=== PATIENT | female | born 1955 | race Caucasian/White ===

== ENCOUNTER 2021-11-19 14:20 | Emergency (ER) | payer MEDICARE, OTHER, SELFPAY ==
--- NOTE | ~2021-11-19 | CT_ITS ---
EXAMINATION: CT HEAD/BRAIN WITHOUT CONTRAST CT CERVICAL SPINE WITHOUT CONTRAST CLINICAL INFORMATION: Trauma, fall. COMPARISON: None TECHNIQUE: 5 mm thin axial and reformatted 2 mm thin sagittal and coronal images of brain were obtained. Subsequently axial 3 mm thin and reformatted 2 mm thin sagittal and coronal images of cervical spine were obtained. DLP: 984.00 mGy-cm FINDINGS: BRAIN: There is no acute intra-axial or extra-axial bleed, masses or midline shift. There is no acute edema or infarction. The lateral ventricles are symmetrical in size and configuration without enlargement. The yang to white matter differentiation is maintained normal. Bone windows reveal no calvarial abnormality. Bilateral paranasal sinuses and mastoid air cells are well-aerated. CERVICAL SPINE: There is mild straightening of cervical lordosis. The vertebral heights and alignment are maintained. The craniovertebral junction and the C1-C2 alignment is normal. There is no visible acute fracture, dislocation or subluxation seen. The prevertebral and paravertebral soft tissues are normal. The airway is widely patent. The lung apices are clear. Incidental finding of a soft tissue mass in the roof of the nasopharynx measuring 1.8 x 1.4 x 1.5 cm on coronal image 05/27. CT/CT head/brain wo IV con IMPRESSION: No acute intracranial process seen. No acute fracture, dislocation or subluxation of the cervical spine. Soft tissue lesion in the roof of the nasopharynx likely a lobulated exophytic polyp/mass. Correlate with direct visualization with pharyngoscopy.
--- NOTE | ~2021-11-19 | CT_ITS ---
EXAMINATION: CT HEAD/BRAIN WITHOUT CONTRAST CT CERVICAL SPINE WITHOUT CONTRAST CLINICAL INFORMATION: Trauma, fall. COMPARISON: None TECHNIQUE: 5 mm thin axial and reformatted 2 mm thin sagittal and coronal images of brain were obtained. Subsequently axial 3 mm thin and reformatted 2 mm thin sagittal and coronal images of cervical spine were obtained. DLP: 984.00 mGy-cm FINDINGS: BRAIN: There is no acute intra-axial or extra-axial bleed, masses or midline shift. There is no acute edema or infarction. The lateral ventricles are symmetrical in size and configuration without enlargement. The yang to white matter differentiation is maintained normal. Bone windows reveal no calvarial abnormality. Bilateral paranasal sinuses and mastoid air cells are well-aerated. CERVICAL SPINE: There is mild straightening of cervical lordosis. The vertebral heights and alignment are maintained. The craniovertebral junction and the C1-C2 alignment is normal. There is no visible acute fracture, dislocation or subluxation seen. The prevertebral and paravertebral soft tissues are normal. The airway is widely patent. The lung apices are clear. Incidental finding of a soft tissue mass in the roof of the nasopharynx measuring 1.8 x 1.4 x 1.5 cm on coronal image 05/27. CT/CT cervical spine wo IV con IMPRESSION: No acute intracranial process seen. No acute fracture, dislocation or subluxation of the cervical spine. Soft tissue lesion in the roof of the nasopharynx likely a lobulated exophytic polyp/mass. Correlate with direct visualization with pharyngoscopy.
--- NOTE | ~2021-11-19 | XR_ITS ---
EXAMINATION: XR HUMERUS, LEFT CLINICAL INFORMATION: Trauma COMPARISON: None TECHNIQUE: AP and lateral views of the left humerus. FINDINGS: The bones and soft tissues are normal. No fracture. Imaged portions of the shoulder and elbow are unremarkable. XR/XR humerus LT IMPRESSION: Normal left humerus.
[2021-11-19 14:22] VITALS: BP 153/87; PULSE 67; RESP 17; TEMP 36.7; O2SAT 98; BMI 25.7
--- NOTE | 2021-11-19 14:39 | ECG_ITS ---
Test Reason : fall Blood Pressure : / mmHG Vent. Rate : 064 BPM Atrial Rate : 064 BPM P-R Int : 190 ms QRS Dur : 094 ms QT Int : 384 ms P-R-T Axes : 052 -05 004 degrees QTc Int : 396 ms Normal sinus rhythm Cannot rule out Anterior infarct , age undetermined Abnormal ECG No previous ECGs available Referred By: Jakob Londono Electronically Signed By:KATIE CASTRO
--- NOTE | 2021-11-19 14:40 | ED_ITS ---
HPI - Fall General Chief Complaint: Fall Stated Complaint: DIZZINESS W/ FALL FROM CHAIR,+CCOLLAR,-THINNERS Time Seen by Provider: 11/19/21 14:34 Source: patient and EMS Mode of arrival: EMS Limitations: no limitations History of Present Illness HPI Narrative: THIS IS A 66 YEARS OLD FEMALE WHO FELL FROM THE CHAIR WHILE SHE WAS GETTING UP, SHE IS COMPLAINING OF LEFT ARM PAIN, NO LOC, NO VOMITING NO SYNCOPE,SHE DENIES DIZZINESS AT THIS TIME MD complaint: fall Onset (ago): hour(s) (2) Fall from: chair Fall witnessed: yes, by family Place fall occurred: home Loss of consciousness: none Prolonged down time: no Symptoms prior to fall: none Context: tripped/slipped Related Data Allergies Allergy/AdvReac Type Severity Reaction Status Date / Time clindamycin [CLINDAMYCIN] Allergy Mild RASH Unverified 10/01/20 13:49 Penicillins [PENICILLINS] Allergy Mild RASH Unverified 10/01/20 13:49 Review of Systems Review of Systems: Yes all other systems are reviewed and are negative ENT: Reports system reviewed and no additional complaints, except as documented Cardiovascular: Cardiovascular: Reports no additional cardiovascular complaints Gastrointestinal: Gastrointestinal: Reports no additional gastrointestinal complaints [facility] Past Medical History [facility] Narrative: BIPOLAR DISORDER Physical Exam Vital Signs: Vital Signs: Last Vital Signs Temp 98.0 F 11/19/21 14:22 Pulse 67 11/19/21 14:22 Resp 17 11/19/21 14:22 BP 153/87 H 11/19/21 14:22 Pulse Ox 98 11/19/21 14:22 O2 Del Method 11/19/21 14:22 BMI result Body Mass Index 25.7 Const: General: cooperative Nutritional Appearance: average body habitus Orientation/consciousness: patient oriented x3 HEENT: Head: Yes normal to inspection General nose exam: Normal external nose present Face and sinus: Yes normal facial exam Mouth: Normal oral and palatal mucosa present Throat: Yes posterior oropharynx normal Neck: Neck: Yes normal visual inspection and Yes full ROM Chest: Chest palpation & inspection: normal inspection of the chest Resp: Effort & Inspection: normal respiratory effort Cardio: Jugular venous distension: no JVD Rate: regular rate Rhythm: regular rhythm GI: Inspection: Yes normal to inspection Palpation (GI): Soft to palpation, not firm and nontender Skin: General skin exam: no rashes or lesions noted Lesions: no lesions Neuro: General: patient oriented x3 Cranial nerves: Yes CN's II-XII intact bilaterally Cognition (Neuro): normal cognition Course Reevaluation(s) Reevaluation #1: WAITING FOR LABS NOT DONE YET SHE WANTS TO EAT , SHE HAS NO DIZZINESS Reevaluation #2: LAB PENDING AND CT PENDING WILL SIGN OUT TO dR [facility] MDM - Fall Lab Data Result diagrams: 11/19/21 15:53 11/19/21 15:53 Imaging Data LEFT HUMERUS: Radiologist's impression: cc: Jakob Londono MD~ EXAMINATION: XR HUMERUS, LEFT CLINICAL INFORMATION: Trauma? COMPARISON: None? TECHNIQUE: AP and lateral views of the left humerus. FINDINGS: The bones and soft tissues are normal. No fracture. Imaged portions of the shoulder and elbow are unremarkable.? XR/XR humerus LT IMPRESSION: Normal left humerus. Dictated By: Hasmukh Nguyen MD Signed By: <Electronically signed by Hasmukh Nguyen MD in OV> 11/19/21 1545 ECG Data Pacemaker model: nsr [address]-T CHANGES Discharge Plan Discharge Clinical Impression: Fall in elderly patient, Contusion of arm, left Patient Disposition: Still a Patient
[2021-11-19 15:56] LABS: MANUAL DIFF FLAG NO
[2021-11-19 16:04] LABS: PLT CLUMP 1; SCAN SMEAR FLAG 1
[2021-11-19 16:06] LABS: Basophils Percent Auto 0.4 % (0-2); Eosinophils Absolute Auto 0.5 X10*3/uL (0.0-0.4); Eosinophils Percent Auto 5.9 % (0-4); Hematocrit 40.3 % (37.0-47.0); Hemoglobin 12.8 g/dl (12.0-16.0); Imm Gran Abs Auto 0.01 X10*3/uL (0.00-0.03); Imm Gran Pct Auto 0.1 % (0.0-0.4); Lymphocytes Absolute Auto 3.4 X10*3/uL (1.2-4.9); Lymphocytes Percent Auto 42.5 % (20-40); Mean Corpuscular HGB Conc 31.8 g/dl (31.0-35.0); Mean Corpuscular Hemoglobin 29.4 pg (27.0-33.0); Mean Corpuscular Volume 92.4 fL (80.0-98.0); Mean Platelet Volume 10.5 fL (9.4-12.3); Monocytes Absolute Auto 0.5 X10*3/uL (0.1-1.2); Monocytes Percent Auto 6.2 % (2-11); Neutrophils Absolute Auto 3.6 x10*3/uL (2.0-8.3); Neutrophils Percent Auto 44.9 % (45-73); Red Blood Count 4.36 X10*6/uL (4.20-5.50); Red Cell Distribution Width 12.6 % (11.0-16.0)
[2021-11-19 16:08] LABS: Platelet Count 126 X10*3/uL (160-400); White Blood Count 8.1 X10*3/uL (4.8-10.8)
[2021-11-19 16:18] LABS: Alanine Aminotransferase 12 U/L (0-31); Albumin Level 3.8 g/dL (3.5-5.0); Alkaline Phosphatase 71 U/L (39-117); Anion Gap 16 (12-20); Aspartate Amino Transferase 18 U/L (5-31); Bilirubin Total 0.3 mg/dL (0.0-1.0); Blood Urea Nitrogen 28 mg/dL (9-16); Calcium 8.8 mg/dL (8.4-10.2); Carbon Dioxide 24 mmol/L (22-29); Chloride 108 mmol/L (96-108); Creatinine Clr Calc Pharmacy 33.2; Estimated Glomerular Filt Rate 32; Glucose Random 89 mg/dL (60-115); Potassium 4.8 mmol/L (3.3-5.1); Sodium 143 mmol/L (135-145); Total Protein 7.1 g/dL (6.5-8.0); Troponin-I High Sensitivity < 3.5 ng/L (<3.5-17.0)
[2021-11-19 17:42] LABS: Valproate 82.2 mcg/mL (50.0-100.0)
== END 2021-11-19 18:55 | disposition home or self-care (01) ==
PROVIDERS: Emergency Medicine; Emergency Provider Emergency Medicine; PCP Internal Medicine
DX: S40.022A Contusion of left upper arm, initial encounter (principal); R42 Dizziness and giddiness; M54.2 Cervicalgia; R51.9 Headache, unspecified; M79.602 Pain in left arm; W18.30XA Fall on same level, unspecified, initial encounter; Y93.9 Activity, unspecified; Y92.9 Unspecified place or not applicable; Y99.9 Unspecified external cause status
CPT/HCPCS: 36415; 70450; 72125; 73060; 80053; 80164; 84484; 85025; 93005; 99283; 99284

== ENCOUNTER 2024-10-10 13:10 | Outpatient (AMB) | payer MEDICARE, SELFPAY ==
--- NOTE | 2024-10-10 13:11 | A.OFFPC_ITS ---
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 Intake Note: New patient visit Crankshaft Grinder Required: No Allergies clindamycin (CLINDAMYCIN) Allergy (Mild, Unverified 10/01/20 13:49) RASH Penicillins (PENICILLINS) Allergy (Mild, Unverified 10/01/20 13:49) RASH Tobacco use date assessed: 10/10/24 Fall risk assessment: No Falls in past year Dental Screening Dental Screen Date: 10/10/24 Did you have a dental visit in the last 12 months?: Yes Did you have a dental problem in the last 6 months where you did not have access to dental care?: No Was dental information given to patient?: Patient has dentist HPI HPI Comments History of Present Illness Details 69 year old female with a past medical h istory of hypothyroid, insomnia, bipolar disorder presenting to [facility]. Transferring from [facility]. BH: on divalproex 500mg. She is following with psychiatry. Significant other has been trying to help patient streamline medication list. She was previously on olanzapine, lamictal. Hypothyroid: on levothyroxine 88mcg daily. She has been fatigued for the past 2 months. She reports recent infection of the right breast. Follows with Dr Godinez. She was on a topical antibiotic but still has some redness and warmth of the right breast She reports that colon cancer screening and mammogram is up to date She reports a history of osteopenia and says she is due for bone density ROS see HPI PHYSICAL EXAM: GENERAL: Alert and oriented x 3. NAD EYES: EOMI. Anicteric. HENT: Moist mucous membranes. No scleral icterus. No cervical lymphadenopathy. LUNGS: Clear to auscultation bilaterally. CARDIOVASCULAR: Regular rate and rhythm. No murmur. No JVD. ABDOMEN: Soft, non-tender +bs EXTREMITIES: No edema. Non-tender. SKIN mild redness and warmth of the lateral right breast NEUROLOGIC: No focal neurological deficits. CN II-XII grossly intact PSYCHIATRIC: Cooperative. Appropriate mood and affect [facility] Surgical History H/O right wrist surgery H/O laparoscopy Family History Father Diabetes Mother HTN (hypertension) Other FH: mental illness Social History Housing: House Alcohol intake: former Patient Tobacco Use Status: Never used Tobacco e-Cigarette/Vaping Use: Never Used Second Hand Smoke Exposure: No service: No Current occupational status: retired and disabled Cognitive needs: Yes (depakote effects focus) Hearing needs: No Vision needs: No Questionnaire PHQ-9 Over the last 2 weeks, how often have you been bothered by any of the following problems? 1. Little interest or pleasure in doing things: not at all 2. Feeling down, depressed, or hopeless: not at all 3. Trouble falling or staying asleep, or sleeping too much: more than half the days 4. Feeling tired or having little energy: more than half the days 5. Poor appetite or overeating: not at all 6. Feeling bad about yourself - or that you are a failure or have let yourself or your family down: not at all 7. Trouble concentrating on things, such as reading the newspaper or watching television: not at all 8. Moving or speaking so slowly that other people could have noticed. Or the opposite - being so fidgety or restless that you have been moving around a lot more than usual: not at all 9. Thoughts that you would be better off or of hurting yourself in some way: not at all Total score: 4 Depression Screening Interpretation: Negative Depression Screening Done: Yes 03910 - PHQ-9 Billing: Yes Source: Developed by Drs. Elder Hall, Gladis Brothers, Vincent Knutson and colleagues, with an educational chano from [employer]. Thrive Questionnaire Date Thrive assessed: 10/10/24 I am a: Patient What is your living situation today?: I have a steady place to live THRIVE Score: 0 AUDIT C Alcohol Use Questionnaire (AUDIT-C) 1. How often do you have a drink containing alcohol?: Never 3. How often do you have six or more drinks on one occasion?: Never Total Score: 0 Physical exam (Primary Care) Vital Signs: Last Vital Signs Temp 98.2 F 10/10/24 13:18 Pulse 85 10/10/24 13:18 Resp 12 10/10/24 13:18 BP 136/80 10/10/24 13:18 Pulse Ox 98 10/10/24 13:18 Oxygen Delivery Method Room Air 10/10/24 13:18 BMI result Body Mass Index 24.7 Tobacco/Smoking Status: Tobacco use Status Tobacco use date assessed 10/10/24 10/10/24 13:23 Patient Tobacco Use Status Never used Tobacco 10/10/24 13:23 e-Cigarette/Vaping Use Never Used 10/10/24 13:23 PHQ-9: PHQ-9 Score PHQ-9: Total score 4 10/10/24 13:24 Depression Screening Interpretation: Negative Thrive Assessment: Date of Thrive Assessment Date Thrive assessed 10/10/24 10/10/24 13:14 Coding Level of Care Code New Pt Level 4 (07836) Complex EM visit Add On G2211 Diagnoses Osteopenia, unspecified location M85.80 Osteopenia location: unspecified Fatigue, unspecified type R53.83 Fatigue type: unspecified Cellulitis of breast N61.0 Hypothyroidism, unspecified type E03.9 Hypothyroidism type: unspecified Additional Codes PHQ-9 - 53175 - PHQ-9 Billing: Yes ([id number]) Assessment & Plan Assessment & Plan (1) Osteopenia: Code(s): M85.80 - Other specified disorders of bone density and structure, unspecified site Category: Medical Qualifiers: Osteopenia location: unspecified Qualified Code(s): M85.80 - Other specified disorders of bone density and structure, unspecified site (2) Fatigue: Code(s): R53.83 - Other fatigue Category: Medical Qualifiers: Fatigue type: unspecified Qualified Code(s): R53.83 - Other fatigue (3) Cellulitis of breast: Code(s): N61.0 - Mastitis without abscess Category: Medical (4) Hypothyroid: Code(s): E03.9 - Hypothyroidism, unspecified Category: Medical Qualifiers: Hypothyroidism type: unspecified Qualified Code(s): E03.9 - Hypothyroidism, unspecified Plan 69 year old to establish care past medical, surgical, social reviewed Right breast cellulitis-keflex ordered Fatigue-labs ordered Osteopenia-dxa ordered Follow up Orders: Orders Lipid Panel Today E28.39 - Other primary ovarian failure, R53.83 - Other fatigue, Z13.220 - Encounter for screening for lipoid disorders, Z13.228 - Encounter for screening for other metabolic disorders Vitamin B12 and Folate Today E28.39 - Other primary ovarian failure, R53.83 - Other fatigue, Z13.220 - Encounter for screening for lipoid disorders, Z13.228 - Encounter for screening for other metabolic disorders TSH reflex Free T4 Today E28.39 - Other primary ovarian failure, R53.83 - Other fatigue, Z13.220 - Encounter for screening for lipoid disorders, Z13.228 - Encounter for screening for other metabolic disorders XR DEXA axial skeleton Today E28.39 - Other primary ovarian failure, M85.80 - Other specified disorders of bone density and structure, unspecified site Comprehensive Met. Panel Today E28.39 - Other primary ovarian failure, R53.83 - Other fatigue, Z13.220 - Encounter for screening for lipoid disorders, Z13.228 - Encounter for screening for other metabolic disorders UA CC w/rflx Micro + Cult Today E28.39 - Other primary ovarian failure, R53.83 - Other fatigue, Z13.220 - Encounter for screening for lipoid disorders, Z13.228 - Encounter for screening for other metabolic disorders Complete Blood Count Auto Diff Today E28.39 - Other primary ovarian failure, R53.83 - Other fatigue, Z13.220 - Encounter for screening for lipoid disorders, Z13.228 - Encounter for screening for other metabolic disorders IRON PROFILE Today E28.39 - Other primary ovarian failure, R53.83 - Other fatigue, Z13.220 - Encounter for screening for lipoid disorders, Z13.228 - Encounter for screening for other metabolic disorders Medications: New cephalexin ok with h/o pcn allergy 500 mg PO Q12H 10 caps 0RF
[2024-10-10 13:18] VITALS: BP 136/80; PULSE 85; RESP 12; TEMP 36.8; O2SAT 98; BMI 24.7
--- OUTSIDE RECORDS SUMMARY | 2024-10-10 13:54 | XMS_ITS | Encounter Summary ---
Author Organization [employer] Address [address] [place] [address] Care Team Providers Care Bisque Kiln Placer Name Role Phone Unavailable Primary Care Provider Unavailabl e Encounter Details Date Type Department Care Team (Late st Contact Info) Description 10/13/2022 Telephone [facility] [address] [place], [place] [phone] Mickey Vela BDS [address] [place], [place] [phone] Social History Tobacco Use Types Packs/Day Years Used Date Smoking Tobacco: Never Assessed Comments Unknown Sex and Gender Information Value Date Recorded Sex Assigned at Female 01/13/2022 10:37 AM EDT Legal Sex Female 10:37 AM EDT Gender Identity Female 01/13/2022 10:37 AM EDT Sexual Orientation Straight 01/13/2022 10 :37 AM EDT documented as of this encounter Miscellaneous Notes * Telephone Encounter - Jillian Lebron - 10/13/2022 9:20 AM EDT Mandi Cuevas 1955 Patient is requesting chlorhidine mouthwash to be sent to pharmacy please advise. documented in this encounter Plan of Treatment Not on file documented as of this encounter Visit Diagnoses Not on filedocumented in this encounter
--- OUTSIDE RECORDS SUMMARY | 2024-10-10 13:54 | XMS_ITS | Clinical Summary ---
Author Organization [facility], Address [address] [place] [address] [place] [address] Phone Care Team Providers Care Speeder Worker Name Role Phone Natalia Vidal MD Primary Care Provi janet Unavailable Allergies Active Allergy Reactions Criticality Noted Date Comments Clindamycin Rash Low 07/04/2019 Penicillins Rash Low 07/04/2019 Medications Multiple Vitamins-Minera ls (MULTIVITAMIN ADULT PO) Take 1 capsule by mouth 1 (one) time each day Active cetirizine (ZyrTEC) 10 MG tablet Take 10 mg by mouth 1 (one) time each day if needed Active divalproex (DEPAKOTE) 500 MG EC tablet Take 500 mg by mouth 2 (two) times a day Prescribed by Dr. Carine Schreiber (Psych) Active fluticasone (FLONASE) 50 MCG/ACT nasal spray Administer 1 spray into each nostril 2 (two) times a day Active lamoTRIgine (LaMICtal) 25 MG tablet Take 1 tablet (25 mg total) by mouth in the morning and 1 tablet (25 mg total) in the evening. 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/2021 Chronic kidney disease, stage 4 (severe) 022 Hypothyroidism Encounters Date Type Department Care Team Description 08/09/2024 1:30 PM EDT Office Visit [facility] [address] [address] Candelario Saleh MD Chronic kidney disease, stage 4 (severe) (HCC) (Primary Dx) from Last 3 Months Immunizations Immunization Administration Dates Next Due H1N1 Inj Preservative Free 01/29/2009 Influenza TIV (IM) 12/30/2010,01/25/2010, 009,01/10/2005 Moderna SARS-COV-2 03/02/2021,08/14/2020, 021 SARS-CoV-2, Unspecified 12/12/2021 Td 02/21/2004 Tdap 11/18/2016,03/23/2015,10/15/2012 Family History Medical History Relation Comments Diabetes type II Father Stroke Father Hypertension Mother Relation Status Comments Father Unknown Mother Unknown Social History Tobacco Use Types Packs/Day Years Used Date Smoking Tobacco: Never Alcohol Use Standard Drinks/Week Comments Yes 0 (1 standard drink = 0.6 oz pure alcohol) Alcoholic Drinks/day: Occasional social drink Comments Unknown Sex and Gender Information Value Date Recorded Sex Assigned at Not on file Legal Sex Female 4:30 PM EST Gender Identity Not on file Sexual Orientation Not on file Last Filed Vital Signs Vital Sign Reading Time Taken Comments Blood Pressure 110/70 11/02/2018 12:00 PM EDT Pulse 100 05/04/2018 12:00 PM EST Temperature - - Respiratory Rate - - Oxygen Saturation - - Inhaled Oxygen Concentration - - Weight 61.7 kg (136 lb) 07/05/2019 2:36 PM EDT Height 165.1 cm (5' 5 ) 11/02/2018 12:00 PM EDT Body Mass Index 22.63 11/02/2018 12:00 PM EDT Plan of Treatment Upcoming Encounters Date Type Department Care Team (Late st Contact Info) Description 11/24/2024 11:20 AM EDT Office Visit [facility] [place], [address] [place] [phone] Candelario Saleh MD [address] [place] [place] [phone] Health Maintenance Due Date Last Done Comments Breast Cancer Screening 1955 Pneumococcal Vaccine: 50+ Years (1 of 2 - PCV) 02/28/1976 Colorectal Cancer Screening: Annual FOBT 2006 Colorectal Cancer Screening: Colonoscopy 2006 Colorectal Cancer Screening: Sigmoidoscopy 2006 Influenza Vaccine (#1) 2024 1, 01/25/2010, 02/22/2009, Additional history exists Hepatitis B Vaccine Aged Out No longe r eligible based on patient's age to complete this [place] [id number] [facility] Medicare [place] [id number] Care Teams Speeder Worker Relationship Specialty Start Date End Date Subramonia-Natalia Arndt MD PCP - General Internal Medicine 04/15/21
--- OUTSIDE RECORDS SUMMARY | 2024-10-10 13:54 | XMS_ITS | Encounter Summary ---
Author Organization [facility] Address [address] [place] [address] Care Team Providers Care Manager Child Name Role Phone John Winkler MD Primary Care Provider [phone] Encounter Details Date Type Department Care Team Description 12/13/2009 Compensation And Benefits Manager Report Medical Records [address] [place] [address] Jorge Gonzalez MD Social History Tobacco Use Types Packs/Day Years Used Date Smoking Tobacco: Never Alcohol Use Standard Drinks/Week Comments No 0 (1 standard drink = 0.6 oz pur e alcohol) Sex Assigned at Date Recorded Not on file documented as of this encounter Plan of Treatment Not on file documented as of this encounter Visit Diagnoses Not on filedocumented in this encounter Care Teams Manager Child Relationship Specialty Start Date End Date John Winkler MD [address] [place] [address] PCP - General 05/28/1994 documented as of this encounter
== END 2024-10-10 13:43 | disposition home or self-care (01) ==
LOC: HO.HMCFM 13:11
PROVIDERS: PCP Internal Medicine; Visit Provider Internal Medicine
DX: M85.80 Other specified disorders of bone density and structure, unspecified site (principal); R53.83 Other fatigue; N61.0 Mastitis without abscess; E03.9 Hypothyroidism, unspecified

== ENCOUNTER 2024-10-10 13:50 | Outpatient (REF) | payer MEDICARE, SELFPAY ==
[2024-10-10 15:00] LABS: MANUAL DIFF FLAG NO
[2024-10-10 15:01] LABS: Hematocrit 41.7 % (37.0-47.0); Hemoglobin 13.2 g/dl (12.0-16.0); Imm Gran Abs Auto 0.02 X10*3/uL (0.00-0.03); Imm Gran Pct Auto 0.3 % (0.0-0.4); Lymphocytes Absolute Auto 2.5 X10*3/uL (1.2-4.9); Mean Corpuscular HGB Conc 31.7 g/dl (31.0-35.0); Mean Corpuscular Hemoglobin 29.1 pg (27.0-33.0); Mean Corpuscular Volume 91.9 fL (80.0-98.0); NRBC Abs Auto 0.000 X10*3/uL (0.0-0.012); NRBC Pct Auto 0.0 /100WBC (0.0-0.2); Platelet Count 146 X10*3/uL (160-400); Red Blood Count 4.54 X10*6/uL (4.20-5.50); White Blood Count 7.2 X10*3/uL (4.8-10.8)
[2024-10-10 15:11] LABS: Appearance Urine Clear; Glucose Urine UA Negative (Negative); PH 6.5 (5.0-9.0); Specific Gravity - Urine 1.015 (1.005-1.025); UMIC TRIGGER UACC YES
[2024-10-10 15:30] LABS: UACC Culture Trigger YES
[2024-10-10 15:47] LABS: Potassium 4.5 mmol/L (3.3-5.1); Sodium 145 mmol/L (135-145)
[2024-10-10 15:48] LABS: Alanine Aminotransferase 15 U/L (0-31); Albumin Level 4.4 g/dL (3.5-5.0); Alkaline Phosphatase 75 U/L (39-117); Anion Gap 14 (12-20); Aspartate Amino Transferase 18 U/L (5-31); Blood Urea Nitrogen 31 mg/dL (9-16); Calcium 9.3 mg/dL (8.4-10.2); Carbon Dioxide 29 mmol/L (22-29); Chloride 107 mmol/L (96-108); Cholesterol 141 mg/dL (<200); Estimated Glomerular Filt Rate 27; HDL Cholesterol 54 mg/dL (>40); Iron 87 mcg/dL (30-160); Percent Iron Saturation 34 % (15-50); Total Iron Binding Capacity 257 mcg/dL (228-428); Total Protein 7.6 g/dL (6.5-8.0); Triglycerides 85 mg/dL (<150); Unsaturated Iron Binding 170 ug/dL
[2024-10-10 16:11] LABS: Folate > 20.0 ng/mL (> or = 4.0); Vitamin B12 600 pg/mL (200-900)
== END 2024-10-10 13:51 | disposition home or self-care (01) ==
LOC: HO.WFDLDS 13:50
PROVIDERS: Visit Provider Internal Medicine
DX: M85.80 Other specified disorders of bone density and structure, unspecified site (principal); R53.83 Other fatigue; N61.0 Mastitis without abscess; E03.9 Hypothyroidism, unspecified; E28.39 Other primary ovarian failure; Z79.899 Other long term (current) drug therapy; Z13.220 Encounter for screening for lipoid disorders; Z13.228 Encounter for screening for other metabolic disorders; Z13.31 Encounter for screening for depression
CPT/HCPCS: 36415; 80053; 80061; 81001; 81003; 82607; 82746; 83540; 84443; 85025; 87086; 96127; 99202

== ENCOUNTER 2024-11-28 14:06 | Outpatient (AMB) | payer MEDICARE, SELFPAY ==
--- OUTSIDE RECORDS SUMMARY | 2024-11-25 11:00 | XMS_ITS | Encounter Summary ---
Author Organization [facility], Address [address] [place] [address] Phone Care Team Providers Care Valve Steamer Name Role Phone Sally Jeffries MD Primary Care Provider [phone] Encounter Details Date Type Department Care Team (Late st Contact Info) Description 11/25/2024 11:00 AM EDT Office Visit [facility], [address] [phone] Candelario Saleh MD [address] [place] [address] [place] [phone] Chronic kidney disease, stage 4 (severe) (HCC) (Primary Dx) Social History Tobacco Use Types Packs/Day Years Used Date Smoking Tobacco: Never Alcohol Use Standard Drinks/Week Comments Yes 0 (1 standard drink = 0.6 oz pure alcohol) Alcoholic Drinks/day: Occasional social drink Comments Unknown Sex and Gender Information Value Date Recorded Sex Assigned at Not on file Legal Sex Female 4:30 PM EST Gender Identity Not on file Sexual Orientation Not on file documented as of this encounter Progress Notes * Candelario Saleh MD - 11/25/2024 11:00 AM EDT Images from the original note were not included. PATIENT: Mandi Cuevas : 1955 ENCOUNTER: 11/25/2024 PCP: Sally Jeffries MD HPI: Mandi Cuevas is a 69 y.o. year old female with a history of Advanced chronic kidney disease who now presents for further evaluation. She reports that despite stopping lamotrigine and trazodone, her symptoms have not improved. The patient describes feeling unbalanced, which makes activities like showering and walking challenging. She uses a stool for support during these tasks. ERIKA mentions that her kidney issues disrupt her sleep, necessitating nighttime bathroom visits. The imbalance has significantly impacted her dailyfunctioning; she hasn't attended [facility] since September and has only been out for a brief visit to the [facility] on September 30 and to celebrate her anniversary. She notes being unable to wear heels dueto her balance issues. ERIKA also reports experiencing itch, primarily on her chest and back. She mentions having scoliosis and associated pain. The patient describes hand tremors, which she attributes to Depakote, noting that they are unpredictable. She recalls having difficulty eating at a fellowship lunch last year due to the tremors, but reports recent improvement in her ability to eat salad. Regarding her current medication regimen, ERIKA continues to take Depakote, folic acid, thyroid medication, magnesium supplement, and hydroxyzine for anxiety and insomnia. She reports taking hydroxyzineat night, which has helped improve her sleep, though she states it's not perfect, but better. The patient expresses concern about possible recurring fibroids and mentions her intention to see agynecologist. She also notes that she will be getting a referral for physical therapy to address her balance issues. Medical History - Chronic kidney disease with stable kidney function at 30-40% - Scoliosis - Fibroids, previously diagnosed, possibly recurrent - Thyroid condition - Psychiatric condition requiring mood stabilizers Medications and Supplements - Depakote - Causes unpredictable hand tremors - Folic acid - Thyroid medication - Magnesium supplement - Hydroxyzine - Taken for anxiety and insomnia, takes one at night, helps with sleep Social History - Marital Status: for 11 years - Social Activities: Has not attended [facility] since September, visited [facility] on September 30 for breakfast - Physical Activity: Difficulty with basic activities like showering and walking, uses a stool for assistance Review of Systems General: Positive for fatigue, weakness, and sleep disturbances. Skin: Positive for itching on chest and back. Genitourinary: Positive for nocturia. Musculoskeletal: Positive for balance issues, difficulty with basic activities like showering and walking. Neurological: Positive for hand tremors. Psychiatric: Positive for anxiety. ROS: Constitutional: No fever. Respiratory: No shortness of breath. Cardiovascular: No chest pain. Gastrointestinal: No abdominal pain, nausea or vomiting. Genitourinary: No hematuria. All other systems reviewed and are negative. 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 SOCIAL HISTORY: Social History Tobacco Use Smoking status: Never Smokeless tobacco: Not on file Substance Use Topics Alcohol use: Yes Comment: Alcoholic Drinks/day: Occasional social drink FAMILY HISTORY: Family History Problem Relation Age of Onset Hypertension Mother Diabetes type II Father Stroke Father MEDICATIONS: Outpatient Encounter Medications as of 11/25/2024 Medication Sig Dispense Refill cetirizine (ZyrTEC) 10 MG tablet Take 10 mg by mouth 1 (one) time each day if needed divalproex (DEPAKOTE) 500 MG EC tablet Take 500 mg by mouth 2 (two) times a day Prescribed by Dr. Carine Schreiber (Psych) fluticasone (FLONASE) 50 MCG/ACT nasal spray Administer 1 spray into each nostril 2 (two) times a day folic acid (FOLVITE) 1 MG tablet Take 1 tablet (1,000 mcg total) by mouth 1 (one) time each day 90 tablet 3 lamoTRIgine (LaMICtal) 25 MG tablet Take 1 tablet (25 mg total) by mouth in the morning and 1 tablet (25 mg total) in the evening. 60 tablet 5 levothyroxine (SYNTHROID, LEVOTHROID) 100 MCG tablet Take 1 tablet (100 mcg total) by mouth 1 (one)time each day 90 tablet 3 Multiple Vitamins-Minerals (MULTIVITAMIN ADULT PO) Take 1 capsule by mouth 1 (one) time each day OLANZapine (ZyPREXA) 10 MG tablet Take 10 mg by mouth every night traZODone (DESYREL) 50 MG tablet Take 50 mg by mouth at bed time No facility-administered encounter medications on file as of 11/25/2024. MEDICATION REVIEW: I have reviewed the patient's current medications. ALLERGIES: is allergic to clindamycin and penicillins. PHYSICAL EXAM: There were no vitals taken for this visit. Constitutional: No apparent distress Cardiovascular: No friction rub. Pulmonary/Chest: No rales. Abdominal: Soft and non-tender. Extremities: Edema None Laboratory, Imaging, and Diagnostic Test Results - Recent results: - Creatinine: 1.6 mg/dL - Estimated GFR: 34-35% - Previous results: - Creatinine: 1.4-1.6 mg/dL (range over time) - Estimated GFR: 30-40% (range over time) - June 2024: - CBC: Normal (specific values not provided) - Phosphorus: Normal (specific value not provided) LABS: Chemistry Lab Units 10/17/24 1333 07/04/24 1011 09/30/23 1421 CREATININE mg/dL 1.69* 1.63* 1.60* BUN mg/dL 27 POTASSIUM mmol/L 4.9 4.9 4.6 SODIUM mmol/L 141 141 141 CO2 mmol/L 22 CHLORIDE mmol/L 104 105 105 ALBUMIN g/dL -- 4.2 4.1 WBC AUTO x10E3/uL -- 7.1 11.2* HEMATOCRIT % -- 35.8 37.6 HEMOGLOBIN g/dL -- 11.6 12.2 PLATELETS AUTO x10E3/uL -- 129* 155 Bone Mineral Lab Units 10/17/24 1333 07/04/24 1011 09/30/23 1421 CALCIUM mg/dL 9.0 8.9 8.9 PHOSPHORUS mg/dL -- 3.7 4.2 PTH pg/mL -- 111* 70* VIT D 25 HYDROXY ng/mL -- 12.9* 18.9* Urine Lab Units 09/30/23 1421 ALB MG/G CREAT UR mg/g creat 22 LABORATORY REVIEW: I have reviewed the labs noted above as well as in the chart, in [facility] and in Care Everywhere. DOCUMENTATION REVIEW: I have reviewed the applicable outside notes located in the chart, in CIS and in Care Everywhere. ASSESSMENT: No diagnosis found. 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 At this point her current medical issues include Balance issues and weakness Assessment: Patient reports ongoing balance problems and weakness despite discontinuation of lamotrigine and trazodone. Symptoms are affecting daily activities such as showering and walking, requiring the use of a stool. The etiology of the balance issues is unclear, but may be related to medication side effects, underlying medical conditions, or a combination of factors. Current medications include Depakote, folic acid, thyroid medication, magnesium supplement, and hydroxyzine for anxiety and insomnia. Plan: - Trial of hydroxyzine 1/2 tablet PO in the morning for balance issues - Referral to physical therapy for balance and strength training - Encourage daily or every other day showering as tolerated - Reassess effectiveness of hydroxyzine trial at next week's follow-up appointment Chronic kidney disease Assessment: Patient has stable chronic kidney disease with recent creatinine of 1.6, correlating with an estimated GFR of 34-35%. Patient reports nocturia disrupting sleep and kidney-related itching.However, phosphorus levels are normal, and the degree of kidney dysfunction is not typically associated with uremic pruritus. The itching is more likely related to dry skin. Plan: - Continue current management of chronic kidney disease - Recommend use of baby oil as a moisturizer, particularly on chest and back before bedtime for itching - Reassure patient that current kidney function is not typically associated with uremic pruritus Sleep disturbances Assessment: Patient reports improved but suboptimal sleep with hydroxyzine use at night. Sleep is disrupted by nocturia. Daytime napping suggests inadequate nighttime sleep. Plan: - Continue hydroxyzine at night for sleep - Emphasize importance of optimizing nighttime sleep to reduce need for daytime naps - Monitor sleep quality with adjustment of morning hydroxyzine dose I appreciate your allowing me to participate in this kind patient's care. I hope all is well. No orders of the defined types were placed in this encounter. documented in this encounter Plan of Treatment Upcoming Encounters Date Type Department Care Team (Late st Contact Info) Description 12/06/2024 3:30 PM EDT Office Visit [facility], [address] [place] [phone] Candelario Saleh MD [address] [place] [phone] documented as of this encounter Visit Diagnoses Diagnosis Chronic kidney disease, stage 4 (severe) ([facility])- Primary documented in this encounter Care Teams Valve Steamer Relationship Specialty Start Date End Date Sally Jeffries MD [address] [place] [address] PCP - General Internal Medicine 10/14/24 documented as of this encounter
--- NOTE | 2024-11-28 14:20 | A.OFFPC_ITS ---
Vital Signs 11/28/24 14:25 11/28/24 14:29 Height 5 ft 4 in Weight 142 lb 8 oz BMI 24.5 BP 132/84 Blood Pressure Location Lt brachial Position Sitting Respiration 14 Pulse 129 H 116 H Pulse Source Pulse Oximeter Pulse Oximeter Pulse Oximetry (%) 97 Oxygen Delivery Method Room Air Intake Visit Reasons: Referral for PT. Intake Note: Refferal for PT for balance. Test Deck Supervisor Required: No Allergies clindamycin (CLINDAMYCIN) Allergy (Mild, Verified 11/28/24 14:23) RASH Penicillins (PENICILLINS) Allergy (Mild, Verified 11/28/24 14:23) RASH Tobacco use date assessed: 11/28/24 Last assessed Fall Risk: 11/28/24 Dental Screening Dental Screen Date: 10/10/24 HPI HPI Comments History of Present Illness Details 69 year old female with a past medical h istory of hypothyroid, insomnia, bipolar disorder presenting for follow up She notes ongoing chronic issues with balance, gait, dizziness. Has neurology referral pending. She has done PT in the past and would like to repeat. Order placed today. BH: on divalproex 500mg. She is following with psychiatry. Significant other has been trying to help patient streamline medication list. She was previously on olanzapine, lamictal. She has had some recent difficulties adjusting to medications. She is having some relationship problems with her . She is tearful today Hypothyroid: on levothyroxine 88mcg daily. She has been fatigued for the past 2 months. Cellulitis of the right breast has resolved following oral antibiotics. Claim Clinician-Follows with Dr Godinez She reports that colon cancer screening and mammogram is up to date She reports a history of osteopenia ROS see HPI PHYSICAL EXAM: GENERAL: Alert and oriented x 3. NAD EYES: EOMI. Anicteric. HENT: Moist mucous membranes. No scleral icterus. No cervical lymphadenopathy. LUNGS: Clear to auscultation bilaterally. CARDIOVASCULAR: Regular rate and rhythm. No murmur. No JVD. ABDOMEN: Soft, non-tender +bs EXTREMITIES: No edema. Non-tender. SKIN mild redness and warmth of the lateral right breast NEUROLOGIC: No focal neurological deficits. CN II-XII grossly intact PSYCHIATRIC: Crying at times. [facility] Surgical History H/O right wrist surgery H/O laparoscopy Family History Father Diabetes Mother HTN (hypertension) Other FH: mental illness Social History Housing: House Alcohol intake: former Patient Tobacco Use Status: Never used Tobacco e-Cigarette/Vaping Use: Never Used Second Hand Smoke Exposure: No service: No Current occupational status: retired and disabled Cognitive needs: Yes (depakote effects focus) Hearing needs: No Vision needs: No Questionnaire Thrive Questionnaire Date Thrive assessed: 10/10/24 I am a: Patient What is your living situation today?: I have a steady place to live Within the past 12 months, did the food you bought not last and you didn't have the money to get more?: I choose not to answer this question Within the past 12 months, did you worry whether your food would run out before you got money to buy more?: I choose not to answer this question Do you have trouble paying for medicines?: I choose not to answer this question Do you have trouble getting transportation to medical appointments?: I choose not to answer this question Do you have trouble paying your heating and electricity bill?: I choose not to answer this question Do you have trouble taking care of your child, family member or friend?: I choose not to answer this question Do you have trouble with day-to-day activities such as bathing, preparing meals, shopping, managing finances, etc.?: I choose not to answer this question Are you currently unemployed and looking for a job?: I choose not to answer this question Are you interested in more education?: No Please select the resources that you would like help with: None Currently or been in a relationship where the following occur: I choose not to answer THRIVE Score: 0 AUDIT C Alcohol Use Questionnaire (AUDIT-C) 1. How often do you have a drink containing alcohol?: Never Total Score: 0 Physical exam (Primary Care) Vital Signs: Last Vital Signs Pulse 116 H 11/28/24 14:29 Resp 14 11/28/24 14:25 BP 132/84 11/28/24 14:25 Pulse Ox 97 11/28/24 14:25 Oxygen Delivery Method Room Air 11/28/24 14:25 BMI result Body Mass Index 24.5 Tobacco/Smoking Status: Tobacco use Status Tobacco use date assessed 11/28/24 11/28/24 14:28 Patient Tobacco Use Status Never used Tobacco 11/28/24 14:21 e-Cigarette/Vaping Use Never Used 11/28/24 14:21 Thrive Assessment: Date of Thrive Assessment Date Thrive assessed 10/10/24 11/28/24 14:21 Currently or been in a relationship where the following occur: I choose not to answer Coding Level of Care Code Est Pt Level 4 (35462) Diagnoses Balance problem R26.89 Hypothyroidism, unspecified type E03.9 Hypothyroidism type: unspecified Assessment & Plan Assessment & Plan (1) Balance problem: Code(s): R26.89 - Other abnormalities of gait and mobility Category: Medical (2) Hypothyroid: Code(s): E03.9 - Hypothyroidism, unspecified Category: Medical Qualifiers: Hypothyroidism type: unspecified Qualified Code(s): E03.9 - Hypothyroidism, unspecified Plan Balance issues-repeat PT. Order slip provided BH-Up and do. She has close f/up with psychiatry Mammogram ordered Hypothyroid-labs Orders: Orders PT Evaluation and Treatment 11/28/24 R26.89 - Other abnormalities of gait and mobility MM tomosynthesis screening BI 11/28/24 Z12.31 - Encounter for screening mammogram for malignant neoplasm of breast Medications: Discontinued cephalexin ok with h/o pcn allergy Discontinued Reason: Patient Completed Course 500 mg PO Q12H 10 caps 0RF
[2024-11-28 14:25] VITALS: BP 132/84; PULSE 129; RESP 14; O2SAT 97; BMI 24.5
[2024-11-28 14:29] VITALS: PULSE 116
--- OUTSIDE RECORDS SUMMARY | 2024-11-28 19:26 | XMS_ITS | Encounter Summary ---
Author Organization [employer] Address [address] [place] [address] Care Team Providers Care Bridge Painter Helper Name Role Phone Unavailable Primary Care Provider Unavailabl e Encounter Details Date Type Department Care Team (Late st Contact Info) Description 10/13/2022 Telephone [facility] [address] [place], [place] [phone] Mickey Vela BDS [address] [place], [place] [phone] Social History Tobacco Use Types Packs/Day Years [...]
--- OUTSIDE RECORDS SUMMARY | 2024-11-28 19:26 | XMS_ITS | Encounter Summary ---
Author Organization [employer] Address [address] [place] [address] [address] [place] [address] Care Team Providers Care Managing Consultant Clinical Professor Name Role Phone Unavailable Primary Care Provider Unavailabl e Reason for Visit * Reason Comments Med Refill Encounter Details Date Type Department Care Team ([facility] st Contact Info) Description 12/16/2023 Refill [facility] [address] [place] [address] [phone] Anival Calix DMD [address] [place] [address] Chronic periodontitis Social History Tobacco Use Types Packs/Day Years Used Date Smoking Tobacco: Never Smokeless Tobacco: Never Comments Unknown Sex and Gender Information Value Date Recorded Sex Assigned at Female 01/13/2022 10:37 AM EDT Legal Sex Female 10:37 AM EDT Gender Identity Female 01/13/2022 10:37 AM EDT Sexual Orientation Straight 01/13/2022 10 :37 AM EDT documented as of this encounter Miscellaneous Notes * Telephone Encounter - Anival Calix DMD - 12/16/2023 9:49 AM EDT Approving, but needs appt for additional refills. documented in this encounter Plan of Treatment Not on file documented as of this encounter Visit Diagnoses Diagnosis Chronic periodontitis Chronic periodontitis, unspecified documented in this encounter
--- OUTSIDE RECORDS SUMMARY | 2024-11-28 19:26 | XMS_ITS | Encounter Summary ---
Author Organization [employer] Address [address] [facility] [address] [place] [address] Care Team Providers Care Take Down Inspector Name Role Phone Unavailable Primary Care Provider Unavailabl e Reason for Visit * Reason Comments Med Refill Encounter Details Date Type Department Care Team ([facility] st Contact Info) Description 11/26/2024 Refill [facility] [address] [place], [place] [phone] Anival Calix, DMD [address] [place] [address] Chronic periodontitis Social History Tobacco Use Types Packs/Day Years Used Date Smoking Tobacco: Never Smokeless Tobacco: Never Alcohol Use Standard Drinks/Week Comments Defer 0 (1 standard drink = 0.6 oz pur e alcohol) Comments Unknown Sex and Gender Information Value Date Recorded Sex Assigned at Female 01/13/2022 10:37 AM EDT Legal Sex Female 10:37 AM EDT Gender Identity Female 01/13/2022 10:37 AM EDT Sexual Orientation Straight 01/13/2022 10 :37 AM EDT documented as of this encounter Miscellaneous Notes * Telephone Encounter - Mickey Vela BDS - 11/28/2024 8:57 AM EDT Approving, but needs appt for additional refills. documented in this encounter Plan of Treatment Not on file documented as of this encounter Visit Diagnoses Diagnosis Chronic periodontitis Chronic periodontitis, unspecified documented in this encounter
--- OUTSIDE RECORDS SUMMARY | 2024-11-28 19:26 | XMS_ITS | Encounter Summary ---
Author Organization [employer] Address [address] [place] [address] [address] [place] [address] Care Team Providers Care Dialer Name Role Phone Unavailable Primary Care Provider Unavailabl e Reason for Visit * Reason Comments Med Refill Encounter Details Date Type Department Care Team ([facility] st Contact Info) Description 08/29/2023 Refill [facility] [address] [place] [phone] Anival Calix DMD [address] [place] [address] Chronic periodontitis Social History Tobacco Use Types [...] Telephone Encounter - Anival Calix DMD - 08/31/2023 8:00 AM EDT Approving, but needs appt for additional refills. documented in this encounter Plan of Treatment Not on file documented as of this encounter Visit Diagnoses Diagnosis Chronic periodontitis Chronic periodontitis, unspecified documented in this encounter
--- OUTSIDE RECORDS SUMMARY | 2024-11-28 19:26 | XMS_ITS | Encounter Summary ---
Author Organization [employer] Address [address] [facility] [address] [place] [address] Care Team Providers Care Tennis Director Name Role Phone Unavailable Primary Care Provider Unavailabl e Encounter Details Date Type Department Care Team (Latest Contact Info) Description 10/25/2020 Abstract [facility] CONVERSIONS Dental, Provider, DDS Social History Tobacco Use Types Packs/Day Years Used Date Smoking Tobacco: Never Assessed Comments Unknown Sex and Gender Information Value Date Recorded Sex Assigned at Female 01/13/2022 10:37 AM EDT Legal Sex Female 10:37 AM EDT Gender Identity Female 01/13/2022 10:37 AM EDT Sexual Orientation Straight 01/13/2022 10 :37 AM EDT documented as of this encounter Plan of Treatment Not on file documented as of this encounter Visit Diagnoses Not on filedocumented in this encounter
--- OUTSIDE RECORDS SUMMARY | 2024-11-28 19:26 | XMS_ITS | Encounter Summary ---
Author Organization [employer] Address [address] [facility] [address] [place] [address] Care Team Providers Care Power Cleaner Operator Name Role Phone Unavailable Primary Care Provider Unavailabl e Reason for Visit * Reason Comments Med Refill Encounter Details Date Type Department Care Team ([facility] st Contact Info) Description 08/24/2023 Refill [facility] [address] [place], [place] [phone] Anival Calix DMD [address] [place] [address] Chronic periodontitis Social History Tobacco Use Types [...] encounter Miscellaneous Notes * Telephone Encounter - Katarina Thao - 08/27/2023 10:55 AM EDT Patient needs her mouth wash she called very upset can we send it to her pharmacy please . Her pharmacy is [facility] in [place] * Telephone Encounter - Anival Calix DMD - 08/24/2023 11:27 AM EDT Approving, but needs appt for additional refills. documented in this encounter Plan of Treatment Not on file documented as of this encounter Visit Diagnoses Diagnosis Chronic periodontitis Chronic periodontitis, unspecified documented in this encounter
--- OUTSIDE RECORDS SUMMARY | 2024-11-28 19:26 | XMS_ITS | Encounter Summary ---
Author Organization [employer] Address [address] [facility] [address] [place] [address] Care Team Providers Care Ammonia Distiller Name Role Phone Unavailable Primary Care Provider Unavailabl e Reason for Visit * Reason Comments Med Refill Encounter Details Date Type Department Care Team ([facility] st Contact Info) Description 02/13/2024 Refill [facility] [address] [place] [address] [phone] Anival Calix DMD [address] [place] [address] Chronic periodontitis Social History Tobacco Use Types [...] Telephone Encounter - Anival Calix DMD - 02/15/2024 7:59 AM EST Approving, but needs appt for additional refills. documented in this encounter Plan of Treatment Not on file documented as of this encounter Visit Diagnoses Diagnosis Chronic periodontitis Chronic periodontitis, unspecified documented in this encounter
--- OUTSIDE RECORDS SUMMARY | 2024-11-28 19:26 | XMS_ITS | Encounter Summary ---
Author Organization [employer] Address [address] [facility] [address] [place] [address] Care Team Providers Care Compressor Operator Name Role Phone Unavailable Primary Care Provider Unavailabl e Encounter Details Date Type Department Care Team (Latest Contact Info) Description 05/14/2021 Abstract [facility] CONVERSIONS Dental, Provider, DDS Social History [...]
--- OUTSIDE RECORDS SUMMARY | 2024-11-28 19:26 | XMS_ITS | Encounter Summary ---
Author Organization [facility], Address [address] [place] [address] Phone Care Team Providers Care Cardiovascular Surgical Tech Name Role Phone Sally Jeffries MD Primary Care Provider [phone] Encounter Details Date Type Department Care Team (Late st Contact Info) Description 10/14/2024 Documentation Only [facility], [address] [facility] [place] [address] Brunilda Houston [address] [place] [phone] Social History Tobacco Use Types Packs/Day Years [...] as of this encounter Plan of Treatment Upcoming Encounters Date Type Department Care Team (Late st Contact Info) Description 12/06/2024 3:30 PM EDT Office Visit [facility], [address] [facility] [place] [address] Candelario Saleh MD [address] [facility] [place] [address] documented as of this encounter Visit Diagnoses Not on filedocumented in this encounter Care Teams Cardiovascular Surgical Tech Relationship Specialty Start Date End Date OTemiMaurer, Sally M, MD 140 [place] [address] PCP - General Internal Medicine 10/14/24 documented as of this encounter
--- OUTSIDE RECORDS SUMMARY | 2024-11-28 19:26 | XMS_ITS | Encounter Summary ---
Author Organization [employer] Address [address] [place] [address] [address] [place] [address] Care Team Providers Care Honing Job Setter Name Role Phone Unavailable Primary Care Provider Unavailabl e Reason for Visit * Reason Comments Med Refill Encounter Details Date Type Department Care Team ([facility] st Contact Info) Description 04/13/2024 Refill [facility] [address] [place] [address] [phone] Anival Calix, DMD [address] [place] [address] Chronic periodontitis Social History Tobacco Use Types [...]
--- OUTSIDE RECORDS SUMMARY | 2024-11-28 19:26 | XMS_ITS | Encounter Summary ---
Author Organization [employer] Address [address] [place] [address] [address] [address] Care Team Providers Care Carton Forming Machine Helper Name Role Phone Unavailable Primary Care Provider Unavailabl e Reason for Visit * Reason Comments Med Refill Encounter Details Date Type Department Care Team ([facility] st Contact Info) Description 10/27/2023 Refill [facility] [address] [place] [address] [phone] Anival Calix DMD [address] [place] [address] Chronic periodontitis Social History Tobacco Use Types [...] Telephone Encounter - Anival Calix DMD - 10/27/2023 11:12 AM EDT Approving, but needs appt for additional refills. documented in this encounter Plan of Treatment Not on file documented as of this encounter Visit Diagnoses Diagnosis Chronic periodontitis Chronic periodontitis, unspecified documented in this encounter
--- OUTSIDE RECORDS SUMMARY | 2024-11-28 19:26 | XMS_ITS | Encounter Summary ---
Author Organization [facility], Address [address] [place] [address] Phone Care Team Providers Care Bisque Tile Burner Name Role Phone Sally Jeffries MD Primary Care Provider [phone] Encounter Details Date Type Department Care Team (Late st Contact Info) Description 08/14/2022 Documentation Only [facility], [address] [facility] [place] [address] Merlyn Madrid [address] [place] [address] Social History Tobacco Use Types Packs/Day [...] Visit [facility] [address] [facility] [place] [address] Candelario Saleh MD [address] [facility] [place] [address] documented as of this encounter Visit Diagnoses Not on filedocumented in this encounter Care Teams Bisque Tile Burner Relationship Specialty Start Date End Date Sally Jeffries MD 140 [facility] [place] [address] PCP - General Internal Medicine 10/14/24 documented as of this encounter
--- OUTSIDE RECORDS SUMMARY | 2024-11-28 19:26 | XMS_ITS | Encounter Summary ---
Author Organization [facility] [place] [facility], Address [address] [place] [address] Phone Care Team Providers Care Emt I/99 Name Role Phone Sally Jeffries MD Primary Care Provider [phone] Encounter Details Date Type Department Care Team (Late st Contact Info) Description 07/26/2021 Documentation Only [facility] [place], [address] [facility] [place] [place] [address] Merlyn Madrid [address] [place] [address] Social History Tobacco Use Types [...] Visit [facility] [address] [place] [address] Candelario Saleh MD [address] [facility] [place] [address] documented as of this encounter Visit Diagnoses Not on filedocumented in this encounter Care Teams Emt I/99 Relationship Specialty Start Date End Date Sally Jeffries MD 140 [facility] [place] [address] PCP - General Internal Medicine 10/14/24 documented as of this encounter
--- OUTSIDE RECORDS SUMMARY | 2024-11-28 19:26 | XMS_ITS | Encounter Summary ---
Author Organization [facility] [place], Address [address] [place] [address] Phone Care Team Providers Care Cash Surrender Calculator Name Role Phone Sally Jeffries MD Primary Care Provider [phone] Encounter Details Date Type Department Care Team (Late st Contact Info) Description 10/06/2022 Documentation Only [facility] [address] [facility] [place] [address] Merlyn Madrid [address] [place] [address] Social History Tobacco Use Types [...] Visit [facility] [address] [facility] [place] [address] Candelario Saleh MD [address] [facility] [place] [address] documented as of this encounter Visit Diagnoses Not on filedocumented in this encounter Care Teams Cash Surrender Calculator Relationship Specialty Start Date End Date Sally Jeffries MD 140 [place] [address] PCP - General Internal Medicine 10/14/24 documented as of this encounter
--- OUTSIDE RECORDS SUMMARY | 2024-11-28 19:26 | XMS_ITS | Clinical Summary ---
Author Organization [facility], Address [address] [place] [address] [place] [address] Phone Care Team Providers Care Learning Developer Name Role Phone Sally Jeffries MD Primary Care Provider [phone] Allergies Active Allergy Reactions Criticality Noted Date Comments Clindamycin Rash Low 07/04/2019 Penicillins Rash Low 07/04/2019 Medications Multiple Vitamins-Vegetable Farmworker als (MULTIVITAMIN ADULT PO) Take 1 capsule by [...] nostril 2 (two) times a day Active levothyroxine (SYNTHROID, LEVOTHROID) 100 MCG tablet Take 1 tablet (100 mcg total) by mouth 1 (one) time each day 90 tablet 3 12/31/19 23 Active folic acid (FOLVITE) 1 MG tablet Take 1 tablet (1,000 mcg total) by mouth 1 (one) time each day 90 tablet 3 12/30/19 24 Active OLANZapine (ZyPREXA) 10 MG tablet Take 10 mg by mouth every night 03/26/19 24 Active hydrOXYzine (VISTARIL) 25 MG capsule TAKE 1 TO 2 CAPSULES BY MOUTH DAILY NEEDED FOR ANXIETY OR SLEEP 11/24/19 25 Active lamoTRIgine (LaMICtal) 25 MG tablet Take 1 tablet (25 mg total) by mouth in the morning and 1 tablet (25 mg total) in the evening. 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 11/26/2021 Chronic kidney disease, stage 4 (severe) 022 Hypothyroidism Encounters Date Type Department Care Team Description 11/25/2024 11:00 AM EDT Office Visit [facility] [address] [place] [address] Candelario Saleh MD Chronic kidney disease, stage 4 (severe) (HCC) (Primary Dx) 10/14/2024 10:30 AM EDT Office Visit [facility] [address] [place] [address] Candelario Saleh MD Chronic kidney disease, stage 4 (severe) (HCC) (Primary Dx) 10/14/2024 Documentation Only [facility] [address] [place] [address] Brunilda Houston 10/13/2024 Telephone [facility] [address] [place] [address] Brunilda Houston from Last 3 Months Immunizations Immunization Administration [...] Visit [facility] [place], [address] [facility] [place] [address] Candelario Saleh MD [address] [facility] [place] [phone] Health Maintenance Due Date Last Done Comments [...] on patient's age to complete this topic Procedures Procedure Name Priority Date/Time Associated Diagnosis Comments BASIC METABOLIC PANEL Routine 10/17/2024 1:33 PM EDT Chronic kidney disease, stage 4 (severe) (HCC) from Last 3 Months Results * (ABNORMAL) Basic Metabolic Panel (10/17/2024 1:33 PM EDT) Glucose 86 70 - 99 mg/dL [facility] BUN 21 8 - 27 mg/dL [facility] Creatinine 1.69(H) 0.57 - 1.00 mg/dL [facility] eGFR CKD-EPI CR 2020 33(L) >59 mL/min/1.7 3 [facility] BUN/Creatinine Ratio 12 12 - 28 [facility] Sodium 141 134 - 144 mmol/L [facility] Potassium 4.9 3.5 - 5.2 mmol/L [facility] Chloride 104 96 - 106 mmol/L [facility] Bicarbonate (CO2) 21 20 - 29 mmol/L [facility] Calcium 9.0 8.7 - 10.3 mg/dL [facility] Blood Venous blood / Unknown 10/17/2024 1:33 PM EDT 10/17/2024 Candelario Saleh MD LAB BLOOD ORDERABLES Final Re sult [facility] [address] [place] [address] from Last 3 Months Insurance [facility] Medicare Care Teams Learning Developer Relationship Specialty Start Date End Date Sally Jeffries MD 140 [facility] [address] PCP - General Internal Medicine 10/14/24
--- OUTSIDE RECORDS SUMMARY | 2024-11-28 19:26 | XMS_ITS | Encounter Summary ---
Author Organization [facility] [place], Address [address] [place] [address] Phone Care Team Providers Care Actuarial Internship Name Role Phone Sally Jeffries MD Primary Care Provider [phone] Encounter Details Date Type Department Care Team (Late st Contact Info) Description 04/12/2021 Documentation Only [facility] [place], [address] [facility] [place] [address] Merlyn Madrid [address] [place] [address] Social History Tobacco Use Types [...] Visit [facility] [place], [address] [facility] [place] [address] Candelario Saleh MD [address] [facility] [place] [address] documented as of this encounter Visit Diagnoses Not on filedocumented in this encounter Care Teams Actuarial Internship Relationship Specialty Start Date End Date Sally Jeffries MD 140 [place] [address] PCP - General Internal Medicine 10/14/24 documented as of this encounter
--- OUTSIDE RECORDS SUMMARY | 2024-11-28 19:26 | XMS_ITS | Encounter Summary ---
Author Organization [employer] Address [address] [facility] [address] [place] [address] Care Team Providers Care Machine Iii Coremaker Name Role Phone Unavailable Primary Care Provider Unavailabl e Reason for Visit * Reason Onset Date Comments Med Refill Dr. Calix chlorehxadine 06/02/2024 Encounter Details Date Type Department Care Team ([facility] st Contact Info) Description 06/02/2024 Refill [facility] [address] [place], [place] [phone] Anival Calix DMD [address] [place] [address] Chronic periodontitis Social History Tobacco Use Types [...] Telephone Encounter - Anival Calix DMD - 06/02/2024 12:05 PM EDT Approving, but needs appt for additional refills. * Telephone Encounter - Lamar Collier - 06/02/2024 11:44 AM EDT Patient is requesting a refill script for chlorhexidine to be sent to pharmacy on file. documented in this encounter Plan of Treatment Not on file documented as of this encounter Visit Diagnoses Diagnosis Chronic periodontitis Chronic periodontitis, unspecified documented in this encounter
--- OUTSIDE RECORDS SUMMARY | 2024-11-28 19:26 | XMS_ITS | Encounter Summary ---
Author Organization [employer] Address [address] [place] [address] [address] [address] Care Team Providers Care Ground Worker Name Role Phone Unavailable Primary Care Provider Unavailabl e Reason for Visit * Reason Comments Med Refill Encounter Details Date Type Department Care Team (Late st Contact Info) Description 09/19/2024 Refill [facility] [address] [place], [place] [phone] Mickey Vela BDS [address] [place], [place] [phone] Chronic periodontitis Social History Tobacco Use Types [...] Telephone Encounter - Anival Calix DMD - 09/19/2024 1:03 PM EDT Approving, but needs appt for additional refills. documented in this encounter Plan of Treatment Not on file documented as of this encounter Visit Diagnoses Diagnosis Chronic periodontitis Chronic periodontitis, unspecified documented in this encounter
--- OUTSIDE RECORDS SUMMARY | 2024-11-28 19:26 | XMS_ITS | Encounter Summary ---
Author Organization [employer] Address [address] [facility] 7t [place] [address] Care Team Providers Care Modeling Agent Name Role Phone Unavailable Primary Care Provider Unavailabl e Reason for Visit * Reason Comments Med Refill Encounter Details Date Type Department Care Team ([facility] st Contact Info) Description 07/25/2024 Refill [facility] [address] [place], [place] [phone] Anival Calix, DMD [address] [place] [address] Chronic periodontitis Social History Tobacco Use Types [...] Telephone Encounter - Mickey Vela BDS - 07/25/2024 2:13 PM EDT Approving, but needs appt for additional refills. documented in this encounter Plan of Treatment Not on file documented as of this encounter Visit Diagnoses Diagnosis Chronic periodontitis Chronic periodontitis, unspecified documented in this encounter
--- OUTSIDE RECORDS SUMMARY | 2024-11-28 19:26 | XMS_ITS | Clinical Summary ---
Author Organization [employer] Address [address] [facility] 7t [place] [address] Care Team Providers Care Telephone Lineworker Name Role Phone Unavailable Primary Care Provider Unavailabl e Allergies Active Allergy Reactions Criticality Noted Date Comments Clindamycin Rash,Dermatitis Medium 05/30/2009 Penicillins Rash,Dermatitis Low 09/19/2005 Medications traZODone (Desyrel) 50 MG tablet Take 100 mg by mouth. 07/14/19 23 Active divalproex (Depakote ER) 250 MG 24 hr tablet TAKE 1 TABLET BY MOUTH EVERY EVENING AT BEDTIME ALONG WITH 500MG TABLET FOR A TOTAL DAILY DOSE OF 750MG 09/18/19 23 Active divalproex (Depakote) 500 MG EC tablet Take 500 mg by mouth 2 times daily. 12/17/19 22 Active lamoTRIgine (LaMICtal) 25 MG tablet 11/08/19 23 Active levothyroxine (Synthroid, Levoxyl) 100 MCG tablet TAKE 1 TABLET BY MOUTH EVERY DAY AT 6 AM 11/12/19 23 Active folic acid (Folvite) 1 MG tablet 11/04/19 23 Active OLANZapine (ZyPREXA) 2.5 MG tablet TAKE 1 TABLET BY MOUTH EVERY NIGHT AT BEDTIME WITH 10 MG TABLET FOR TOTAL DOSE OF 12.5 NIGHTLY 10/16/19 23 Active magnesium oxide 250 MG tablet Take 1 tablet by mouth Once per day. 01/25/20 24 Active chlorhexidine (Peridex) 0.12 % solutionIndicatio ns:Chronic periodontitis SWISH 15MLS BY MOUTH FOR 30 SECONDS THEN SPIT OUT. USE AFTER MEALS THREE TIMES DAILY 473 mL 11/29/19 25 Active chlorhexidine (Peridex) 0.12 % solutionIndicatio ns:Chronic periodontitis SWISH BY MOUTH 15MLS FOR 30 SECONDS THEN SPIT OUT USE AFTER MEALS(3 TIMES A DAY) 473 mL 09/20/19 25 025 Discontinued Active Problems Problem Noted Date Diagnosed Date Dental calculus 11/24/2022 Localized gingival recession 11/24/2022 Encounters Date Type Department Care Team Description 11/26/2024 Refill [facility] [address] [place] [address] [phone] Anival Calix DMD Chronic periodontitis 09/19/2024 Refill [facility] [address] [place] [address] [phone] Mickey Vela, BDS Chronic periodontitis 09/14/2024 2:00 PM EDT Office Visit [facility] [address] [place] [address] Zabrina Del Cid Dental calculus (Primary Dx); Dental plaque; Encounter for dental examination and cleaning with abnormal findings 09/13/2024 Telephone [facility] [address] [place], [place] [phone] Crista Jensen 09/02/2024 Telephone [facility] [address] [place], [place] [phone] Lavinia Acosta from Last 3 Months Social History Tobacco Use Types Packs/Day Years [...] Orientation Straight 01/13/2022 10 :37 AM EDT Last Filed Vital Signs Vital Sign Reading Time Taken Comments Blood Pressure 134/78 09/14/2024 1:59 PM EDT Pulse 70 07/09/2023 2:09 PM EDT Temperature - - Respiratory Rate - - Oxygen Saturation - - Inhaled Oxygen Concentration - - Weight - - Height - - Body Mass Index - - Plan of Treatment Health Maintenance Due Date Last Done Comments CT Colonography 1957 Colonoscopy 1957 Colorectal Cancer Screening 1957 Depression Screening 1957 FIT DNA/Cologuard 1957 FIT 1957 FOBT 1957 SDOH Screening 1957 Sigmoidoscopy 1957 Alcohol/Substance Use Screening 1969 Hepatitis C Screening 1975 Mammogram 1997 Pneumococcal Vaccine: 50+ Years (1 of 1 - PCV) 2007 Zoster Vaccines (1 of 2) 2007 COVID-19 Vaccine (5 - season) 2024 12/12/2021, 03/02/2021, 08/14/2020, Additional history exists Influenza Vaccine (#1) 2024 , 12/30/2010, 01/25/2010, Additional history exists Dental X-Ray: Bitewings 03/03/2025 03/02/20 24, 07/09/2023, 11/24/2022, Additional history exists Dental Oral Exam 03/18/2025 09/14/2024, , 07/09/2023, Additional history exists Dental Prophylaxis 03/18/2025 09/14/2024, 1 05/03/2023, 07/09/2023, Additional history exists Tobacco Screening 09/14/2025 09/14/2024 DTaP/Tdap/Td Vaccines (4 - Td or Tdap) 11/18/2026 11/18/2016, 03/23/2015, 10/15/2012, Additional history exists Dental X-Ray: Full Mouth 03/03/2027 03/02/2024, 04/16 RSV Patients and Patients Aged 60 years or older (1 - 1-dose 75+ series) 02/28/2032 HIB Vaccines Aged Out No longer eligi ble based on patient's age to complete this topic HPV Vaccines Aged Out No longer eligi ble based on patient's age to complete this topic Hepatitis A Vaccines Aged Out No long er eligible based on patient's age to complete this topic Hepatitis B Vaccines Aged Out No long er eligible based on patient's age to complete this topic IPV Vaccines Aged Out No longer eligi ble based on patient's age to complete this topic Meningococcal B Vaccine Aged Out No l onger eligible based on patient's age to complete this topic Meningococcal Vaccine Aged Out No lora nelida eligible based on patient's age to complete this topic RSV under 20 months Aged Out No longe r eligible based on patient's age to complete this topic Rotavirus Vaccines Aged Out No longer eligible based on patient's age to complete this topic Procedures Procedure Name Priority Date/Time Associated Diagnosis Comments PERIODIC ORAL EVALUATION - ESTABLISHED PATIENT Routine 09/14/2024 2:00 PM EDT Encounter for dental examination and cleaning with abnormal findings ORAL HYGIENE INSTRUCTIONS Routine 09/14/2024 2:00 PM EDT Encounter for dental examination and cleaning with abnormal findings PROPHYLAXIS - ADULT Routine 09/14/2024 2 :00 PM EDT Encounter for dental examination and cleaning with abnormal findings INTRAORAL - COMPLETE SERIES OF RADIOGRAPHIC IMAGES Routine 03/02/2024 1:00 PM EST from Last 3 Months or Most Recently Relevant to Health Maintenance Insurance DENTAL - [facility] PPO [place]
--- OUTSIDE RECORDS SUMMARY | 2024-11-28 19:26 | XMS_ITS | Encounter Summary ---
Author Organization [employer] Address [address] [place] [address] 7[address] [place] [address] Care Team Providers Care Poultry Farmer Name Role Phone Unavailable Primary Care Provider Unavailabl e Reason for Visit * Reason Comments Med Refill Encounter Details Date Type Department Care Team ([facility] st Contact Info) Description 05/13/2023 Refill [facility] [address] [place] [address] [phone] Anival Calix DMD [address] [place] [address] Chronic periodontitis Social History Tobacco Use Types [...] Telephone Encounter - Anival Calix DMD - 05/14/2023 11:40 AM EST Approving, but needs appt for additional refills. documented in this encounter Plan of Treatment Not on file documented as of this encounter Visit Diagnoses Diagnosis Chronic periodontitis Chronic periodontitis, unspecified documented in this encounter
--- OUTSIDE RECORDS SUMMARY | 2024-11-28 19:26 | XMS_ITS | Encounter Summary ---
Author Organization [employer] Address [address] [facility] [address] [address] Care Team Providers Care Animal Damage Control Agent Name Role Phone Unavailable Primary Care Provider Unavailabl e Reason for Visit * Reason Onset Date Comments Dr. Calix chlorehexadine script refill 04/16/2024 Encounter Details Date Type Department Care Team ([facility] st Contact Info) Description 04/16/2024 Refill [facility] [address] [place], [place] [phone] Anival Calix, DMD [address] [place] [address] Chronic periodontitis Social History Tobacco Use Types [...] encounter Miscellaneous Notes * Telephone Encounter - Alva Gaines DDS - 04/19/2024 10:08 AM EST Approving, but needs appt for additional refills. * Telephone Encounter - Lamar Collier - 04/19/2024 9:44 AM EST Patient is calling in looking for a refill of chlorehexadine sent to pharmacy on file DR Marksally signed by Lamar Collier at 04/19/2024 9:45 AM EST documented in this encounter Plan of Treatment Not on file documented as of this encounter Visit Diagnoses Diagnosis Chronic periodontitis Chronic periodontitis, unspecified documented in this encounter
--- OUTSIDE RECORDS SUMMARY | 2024-11-28 19:26 | XMS_ITS | Encounter Summary ---
Author Organization [facility] [place], Address [address] [place] [address] Phone Care Team Providers Care Propellant Charge Zone Assembler Name Role Phone Sally Jeffries MD Primary Care Provider [phone] Encounter Details Date Type Department Care Team (Late st Contact Info) Description 03/18/2022 Documentation Only [facility] [place], [address] [place] [address] Merlyn Madrid [address] [place] [address] Social History Tobacco Use Types [...] Visit [facility] [address] [place] [address] Candelario Saleh MD [address] [facility] [place] [address] documented as of this encounter Visit Diagnoses Not on filedocumented in this encounter Care Teams Propellant Charge Zone Assembler Relationship Specialty Start Date End Date Sally Jeffries MD [address] [facility] [place] [address] PCP - General Internal Medicine 10/14/24 documented as of this encounter
== END 2024-11-28 15:27 | disposition home or self-care (01) ==
LOC: HO.HMCFM 14:06
PROVIDERS: PCP Internal Medicine; Visit Provider Internal Medicine
DX: R26.89 Other abnormalities of gait and mobility (principal); E03.9 Hypothyroidism, unspecified

== ENCOUNTER → 2024-11-28 14:06 | Outpatient (BNVA) | payer MEDICARE, SELFPAY | PROVIDERS: PCP Internal Medicine; Visit Provider Internal Medicine | DX: R26.89 Other abnormalities of gait and mobility (principal); E03.9 Hypothyroidism, unspecified | CPT/HCPCS: 99212 ==